=== PATIENT | female | born 1990 | race African-American/Black ===

== ENCOUNTER → 2017-11-27 | Outpatient (CLI) | payer MEDICAID | LOC: HPND 10:27 | PROVIDERS: ATTEND Obstetrics & Gynecology | DX: Z36.2 Encounter for other antenatal screening follow-up (principal); O99.332 Smoking (tobacco) complicating pregnancy, second trimester; O09.32 Supervision of pregnancy with insufficient antenatal care, second trimester | CPT/HCPCS: 76811 ==

== ENCOUNTER 2018-03-18 10:05 | Inpatient (IN) ==
[2018-03-18] MEDS ORDERED: ceFAZolin 2 GM Premix Inj 2 GM/50 ML PIGGYBACK IV.SIG PRN (10:48)
[2018-03-18] MEDS ORDERED: Citric Acid/Sodium Citrate Liq 30 ML UDC PO SCH (11:00)
[2018-03-18 11:02] LABS: Baso % (Auto) 0.2 % (0.0-2.0); Eos # (Auto) 0.1 th/mm3 (0.0-0.4); Eos % (Auto) 0.9 % (0.0-4.0); Hematocrit 34.6 % (35.0-46.0); Hemoglobin 11.2 gm/dL (11.6-15.3); Lymph # (Auto) 1.2 th/mm3 (1.0-4.8); Lymph % (Auto) 17.6 % (9.0-44.0); Mean Corpuscular HGB Conc 32.5 % (32.0-36.0); Mean Corpuscular Hemoglobin 26.3 pg (27.0-34.0); Mean Corpuscular Volume 80.8 fL (80.0-100.0); Mean Platelet Volume 9.5 fL (7.0-11.0); Mono # (Auto) 0.5 th/mm3 (0.0-0.9); Mono % (Auto) 7.6 % (0.0-8.0); Neut # (Auto) 4.8 th/mm3 (1.8-7.7); Neut % (Auto) 73.7 % (16.0-70.0); Platelet Count 271 th/mm3 (150-450); Red Blood Count 4.28 mil/mm3 (4.00-5.30); Red Cell Distribution Width 15.2 % (11.6-17.2); White Blood Count 6.6 th/mm3 (4.0-11.0)
[2018-03-18 11:32] LABS: Amphetamine Screen,Urine Neg (Neg); Barbiturate Screen,Urine Neg (Neg); Cannabinoid Screen,Urine Neg (Neg); Cocaine Screen,Urine Neg (Neg)
[2018-03-18 11:33] LABS: Opiate Screen,Urine Neg (Neg)
[2018-03-18 11:45] LABS: Bacteria,Urine Rare /hpf; Bilirubin,Urine Negative (Negative); Clarity,Urine Hazy (Clear); Color,Urine Yellow (Yellw/Straw); Glucose,Urine (UA) Negative (Negative); Leukocyte Esterase,Urine Moderate (Negative); Mucus,Urine Few /lpf (Occasional); Nitrite,Urine Negative (Negative); Specific Gravity,Urine 1.016 (1.002-1.035); Squamous Epithelial Cell,Urine 18 /hpf (0-5)
--- NOTE | 2018-03-18 11:51 | P.HPOB ---
History of Present Illness Primary Care Physician: No Primary Care Physician Chief Complaint: Repeat C section History of Present Illness: Patient is a 27-year-old at 39/0 who presents today for repeat C section. She states she has had hypertension with , starting when she was [age] months . She has not been hypertensive in clinic with [facility] or here in the hospital today thus far. She reports infrequent contractions causing 9/10 pain. [facility]. She states she has had normal movement. Denies nausea, vomiting, fever, chills, abdominal pain, shortness of breath, changes in vision, headache, lightheadedness, dizziness, dysuria, hematuria, frequency, change in urine color /smell, change in bowel habits, large gushes of fluid. Denies discharge. No bloody discharge, abnormally colored or malodorous discharge. No other complaints today. PMH: history of bipolar disorder without hospitalization, not currently on medications Surgical Hx: CD x3, denies complications Social: Recently incarcerated. Marijuana use in the past, denies other drug use. No alcohol, tobacco, or drugs during . Weeks Gestation:: 39 Para: 4 : 3 Total # of Miscarriage(s): 0 Total # of Abortions (Spontaneous & Elective): 0 - Inpatient Certification I certify that the inpatient services were ordered in accordance with Medicare regulations governing the order. This includes certification that hospital inpatient services are reasonable and necessary and in the case of services not specified as inpatient-only under 42 CFR 419.22(n), that they are appropriately provided as inpatient services in accordance to with the 2-midnight benchmark under 43 CFR 412.3(e) Estimated Total Length of Stay (Days): 2 Plans for Post Hospital Care: Home Review of Systems Constitutional: Denies fever(s), Denies weakness Eyes: Denies blurry vision, Denies change in vision Ears, Nose, Mouth, and Throat: Denies abnormal hearing, Denies headache(s) ( Migraine during , none currently) Cardiovascular: Denies chest pain, Denies rapid, pounding, or irregular heartbeat, Denies shortness of breath Respiratory: Denies cough, Denies shortness of breath Gastrointestinal: Denies abdominal pain, Denies nausea Genitourinary: Denies difficulty urinating, Denies urinary urgency Medications and Allergies Active Medications: Active Medications Citric Acid/Sodium Citrate (Sodium Citrate/Citric Acid Liq) 30 ml PO OPERATIONS MANAGER DEMI Stop: 03/22/18 10:59 Cefazolin Sodium/Dextrose (Ancef 2 Gm Premix Inj) 2 gm in 50 mls @ 100 mls/hr IV.SIG OPERATIONS MANAGER PRN PRN Reason: Pre Op Stop: 03/22/18 10:47 Lactated Ringer's (Lr 1000 Ml Inj) 1,000 mls @ 2,000 mls/hr IV.SIG .Q30M ONE Stop: 03/18/18 11:17 Lactated Ringer's (Lr 1000 Ml Inj) 1,000 mls @ 150 mls/hr IV.CONT .Q6H40M DEMI Allergies Allergy/AdvReac Type Severity Reaction Status Date / Time shellfish Allergy Severe Swelling Uncoded 03/18/18 10:45 of lips and hands and hives Home Medications Medication Instructions Recorded Confirmed Type [id number],carb,[id number] 1 cap PO TID 03/18/18 03/18/18 History [CitraNatal [place] (iron fum)] prenat.vits,lorena,jkp-veyn-ggicm 1 tab PO DAILY 03/18/18 03/18/18 History [ Vitamin] Exam Vital signs: Vital Signs Temp Pulse Resp BP 03/18/18 10:45 98.3 F 17 03/18/18 10:42 75 100/81 Narrative: General: Alert, well appearing, in no acute distress Skin: Warm and dry HEENT: Atraumatic. Moist mucus membranes Cardiac: Regular rate and rhythm without murmur Pulmonary: No increased work of breathing. Clear to auscultation bilaterally with good air movement. Abdominal: Non-tender. Gravid uterus. FHT's: Category: 2 Baseline: 140 Reactive: yes Variability: moderate Decels: rare mild variables Extremities: No cyanosis or edema. Back: No CVA tenderness. Caprini VTE Risk Assessment Caprini VTE Risk Assessment: No/Low Risk (score <= 1) Caprini Risk Assessment Model: Point Value = 1 Point Value = 2 Point Value = 3 Point Value = 5 Age 41-60 Minor surgery BMI > 25 kg/m2 Swollen legs Varicose veins or History of unexplained or recurrent spontaneous Oral contraceptives or hormone replacement Sepsis (< 1 month) Serious lung disease, including pneumonia (< 1 month) Abnormal pulmonary function Acute myocardial infarction Congestive heart failure (< 1 month) History of inflammatory bowel disease Medical patient at bed rest Age 61-74 Arthroscopic surgery Major open surgery (> 45 min) Laparoscopic surgery (> 45 min) Malignancy Confined to bed (> 72 hours) Immobilizing plaster cast Central venous access Age >= 75 History of VTE Family history of VTE Factor V Leiden Prothrombin [id number] Lupus anticoagulant Anticardiolipin antibodies Elevated serum homocysteine Heparin-induced thrombocytopenia Other congenital or acquired thrombophilia Stroke (< 1 month) Elective arthroplasty Hip, pelvis, or leg fracture Acute spinal cord injury (< 1 month) Prophylaxis Regimen: Total Risk Factor Score Risk Level Prophylaxis Regimen 0-1 Low Early ambulation 2 Moderate Order ONE of the following: *Sequential Compression Device (SCD) *Heparin 5000 units SQ BID 3-4 Higher Order ONE of the following medications: *Heparin 5000 units SQ TID *Enoxaparin/Lovenox 40 mg SQ daily (WT < 150 kg, CrCl > 30 mL/min) *Enoxaparin/Lovenox 30 mg SQ daily (WT < 150 kg, CrCl > 10-29 mL/min) *Enoxaparin/Lovenox 30 mg SQ BID (WT < 150 kg, CrCl > 30 mL/min) AND/OR *Sequential Compression Device (SCD) 5 or more Highest Order ONE of the following medications: *Heparin 5000 units SQ TID (Preferred with Epidurals) *Enoxaparin/Lovenox 40 mg SQ daily (WT < 150 kg, CrCl > 30 mL/min) *Enoxaparin/Lovenox 30 mg SQ daily (WT < 150 kg, CrCl > 10-29 mL/min) *Enoxaparin/Lovenox 30 mg SQ BID (WT < 150 kg, CrCl > 30 mL/min) AND *Sequential Compression Device (SCD) Assessment and Plan - Diagnosis (1) 39 weeks gestation of Code(s): Z3A.39 - 39 weeks gestation of Status: Acute (2) Previous section complicating Code(s): O34.219 - Maternal care for unspecified type scar from previous delivery Status: Acute (3) Rubella non-immune status, antepartum Code(s): O99.89 - Other specified diseases and conditions complicating , childbirth and the puerperium; Z28.3 - Underimmunization status Status: Acute - Plan This is a 27yo who presents for scheduled repeat IUP at 39 weeks gestation via 2nd trimester US - scheduled for 39 / 0 due to prior x 3 -History of MJ use, but denies current drug use -Reports HTN in (at 4months), however no hx of preeclampsia and not hypertensive in clinic with [facility] and not currently hypertensive -GBS negative -Category II FHT Plan: -Plan for delivery today -Continue to monitor FHT -NPO diet for surgery -Ancef: 2 grams before surgery -Fluids: 1 L of LR given, LR @ 150/hr -VTE ppx with SCDs
[2018-03-18] MEDS ORDERED: Morphine Sulfate PF Inj 5 MG/10 ML Ampul ONE (14:01)
--- NOTE | 2018-03-18 14:06 | P.OBGPN ---
MD notified by RN of variable decelerations noted. Note surgery was delayed secondary to emergent surgery bumped. heel coverer aware patient in route to the OR
[2018-03-18] MEDS ORDERED: Phenylephrine/NS 1000 MCG/10ML Syringe IV.PUSH ONE (14:11)
[2018-03-18] MEDS ORDERED: Ketorolac Inj 30 MG/ML (IVP) Vial IV.PUSH ONE (14:11)
[2018-03-18] MEDS ORDERED: Oxytocin 30 Units/500ml Premix 30 UNITS/500 ML BAG IV.SIG ONE (15:17)
[2018-03-18] MEDS ORDERED: Naloxone Inj 0.4 MG/ML Vial IV.PUSH PRN (16:59)
[2018-03-18] MEDS ORDERED: Oxytocin 30 Units/500ml Premix 30 UNITS/500 ML BAG IV.SIG PRN (20:17)
--- NOTE | 2018-03-18 21:21 | P.OP ---
Date of procedure: 03/18/18 Procedure: Repeat low uterine segment transverse section Anesthesia: spinal Surgeon: Adalgisa Anand MD Ocean Freight Forwarder: Anselmo LEE PGY 3 Estimated blood loss (mL): 500 Operation and Findings: Patient counseled of alternatives benefits complications including but not limited to permanent injury to the bowel bladder nerve blood vessels ureters any structures in abdomen or pelvis infection hemorrhage morbidity mortality related surgery under anesthesia related procedures even the remote possibility of infection hemorrhage injury patient expressed verbal understanding. She was subsequently taken to the OR after informed consent obtained prepped and draped in normal sterile fashion after spinal analgesia noted to be adequate timeout performed also received antibiotics and SCDs in place. Subsequently a Pfannenstiel incision was made to the previous incision carried down to the underlying layer of fascia which was incised in the midline dissected laterally sharply with curved Roach scissors superior aspect of the fascia was grasped with [place] clamps x2 dissected off from the underlying rectus muscle sharply. Inferior aspect of the fascia was grasped with Eduardo clamps x2 dissected off from the underlying rectus muscle sharply. Rectus muscle blunt entrance into the peritoneum with care to avoid the bladder. Bladder blade was subsequently placed vesicouterine peritoneum was identified bladder flap was created in a transverse fashion. Transverse incision on the uterus. Extended laterally digitally. Amniotomy clear fluid. vertex was brought to the incision nares and mouth were bulb suctioned delivery of the remainder of the body. Delayed cord clamping. A viable male weight 8 pounds 1 ounce Apgars 8 9 delivered without incident. Cord blood collected placenta manually removed the uterus was left in situ cleared of all clot and debris closed with 1 chromic in a running locked fashion followed by second imbricating Lambert suture. Hemostasis was noted to be adequate. At this time identification of the fascia which was closed with 1 PDS in a running fashion. Subcutaneous bleeding controlled with Bovie pencil. Irrigation followed by closure of the skin with a Harley needle Monocryl. Patient taught procedure well sponge lap needle counts correct x2 patient taken to recovery room in stable condition.
[2018-03-18] MEDS ORDERED: ceFAZolin Inj 2,000 MG in Sodium Chlor 0.9% Inj 80 ML IV.SIG SCH (22:00)
[2018-03-18] MEDS: ceFAZolin 2 GM Premix Inj 2 GM/50 ML PIGGYBACK IV.SIG SCH (23:16)
[2018-03-19] MEDS: ceFAZolin 2 GM Premix Inj 2 GM/50 ML PIGGYBACK IV.SIG SCH (05:28)
[2018-03-19 05:48] LABS: Baso % (Auto) 0.2 % (0.0-2.0); Hematocrit 27.9 % (35.0-46.0); Hemoglobin 9.3 gm/dL (11.6-15.3); Lymph % (Auto) 8.3 % (9.0-44.0); Mean Corpuscular HGB Conc 33.3 % (32.0-36.0); Mean Corpuscular Hemoglobin 26.4 pg (27.0-34.0); Mean Corpuscular Volume 79.2 fL (80.0-100.0); Mean Platelet Volume 8.9 fL (7.0-11.0); Mono # (Auto) 1.1 th/mm3 (0.0-0.9); Mono % (Auto) 9.7 % (0.0-8.0); Neut # (Auto) 9.6 th/mm3 (1.8-7.7); Neut % (Auto) 81.8 % (16.0-70.0); Platelet Count 239 th/mm3 (150-450); Red Blood Count 3.52 mil/mm3 (4.00-5.30); Red Cell Distribution Width 14.7 % (11.6-17.2); White Blood Count 11.8 th/mm3 (4.0-11.0)
--- NOTE | 2018-03-19 08:53 | P.PNOB ---
Subjective Post day: 1 Interval history: Postoperative day # 1 Afebrile with stable vitals overnight. Incision not draining. Decreased lochia. Denies dysuria. No breast tenderness. Appetite good. No nausea or vomiting. Not yet ambulating well. Denies calf pain or shortness of breath. She had some nausea and vomiting yesterday postoperatively. Otherwise, she is doing well this morning and has no other complaints. Objective Vital Signs/I&O: Vital Signs 03/18/18 10:42 03/18/18 10:45 03/18/18 12:26 Temperature 98.3 F Pulse Rate 75 73 Respiratory Rate 17 Blood Pressure 100/81 104/58 L 03/18/18 15:25 03/18/18 15:40 03/18/18 15:45 Temperature 97.6 F Pulse Rate 68 70 70 Respiratory Rate 16 16 16 Blood Pressure 93/51 L 97/52 L 97/52 L 03/18/18 15:55 03/18/18 16:10 03/18/18 16:24 Temperature Pulse Rate 63 67 59 L Respiratory Rate 16 16 16 Blood Pressure 102/59 L 98/55 L 102/55 L 03/18/18 18:30 03/18/18 20:00 03/19/18 00:30 Temperature 97.5 F L 97.7 F Pulse Rate 53 L 64 55 L Respiratory Rate 20 18 18 Blood Pressure 112/71 115/72 113/71 03/19/18 04:00 03/19/18 08:00 Temperature 97.9 F 98.0 F Pulse Rate 55 L 58 L Respiratory Rate 18 20 Blood Pressure 107/54 L 99/59 L Intake & Output 03/18/18 03/19/18 03/19/18 18:59 06:59 18:59 Intake Total 1100 / 1100 50 / 50 Balance 1100 / 1100 50 / 50 Weight 68 kg Intake: IV 1100 / 1100 50 / 50 Ofirmev Inj 1,000 mg In 100 ml 100 / 100 @ 0 mls/hr IV.SIG .STK-MED ONE Rx#:[id number] LR 1000 mL Inj 1,000 ML @ 2000 1000 / 1000 mls/hr IV.SIG .Q30M ONE Rx#: [id number] Ancef 2 GM Premix Inj 2 gm In 50 / 50 50 ml @ 100 mls/hr IV.SIG Q8H [facility] Rx#:[id number] Other: Weight On Admission 68 kg Result Diagrams: 03/19/18 05:37 Objective Remarks: General: Alert, well appearing, in no acute distress Skin: Warm and dry HEENT: Atraumatic. Moist mucus membranes Cardiac: Regular rate and rhythm without murmur Pulmonary: No increased work of breathing. Clear to auscultation bilaterally with good air movement. Abdominal: Non-tender. + BS. Uterus firm and non-tender below the umbilicus. Incision w/o extending erythema or purulent discharge Extremities: no edema, 2+ pedal pulses, no calf tenderness Medications and IVs: Active Medications Citric Acid/Sodium Citrate (Sodium Citrate/Citric Acid Liq) 30 ml PO PLASTERER FOREMAN [facility] Stop: 03/22/18 10:59 Last Admin: 03/18/18 14:07 Dose: 30 ml Diphenhydramine HCl (Benadryl) 50 mg PO Q6H PRN PRN Reason: MILD TO MODERATE ITCHING Stop: 03/19/18 16:58 Diphenhydramine HCl (Benadryl Inj) 25 mg IV.PUSH Q6H PRN PRN Reason: MILD TO MODERATE ITCHING Stop: 03/19/18 16:58 Diphtheria/Pertussis/Tetanus Vacc (Boostrix Vaccine Inj) 0.5 ml IM .ONCE ONE Stop: 03/19/18 16:01 Lactated Ringer's (Lr 1000 Ml Inj) 1,000 mls @ 150 mls/hr IV.CONT .Q6H40M [facility] Last Admin: 03/19/18 04:30 Dose: Not Given Lactated Ringer's (Lr 1000 Ml Inj) 1,000 mls @ 100 mls/hr IV.CONT .Q10H [facility] Stop: 03/19/18 16:16 Last Admin: 03/19/18 07:39 Dose: Not Given Oxytocin (Pitocin 30 Units/Ns 500 Ml Premix) 30 units in 500 mls @ 100 mls/hr IV.SIG UNSCH PRN PRN Reason: Heavy bleeding Ibuprofen (Motrin) 800 mg PO Q8H PRN PRN Reason: cramping Ketorolac Tromethamine (Toradol Inj) 30 mg IM Q6H PRN PRN Reason: SEE LABEL COMMENTS Stop: 03/23/18 15:16 Last Admin: 03/19/18 04:43 Dose: 30 mg Measles/Mumps/Rubella Vaccine Live (M-M-R Ii Vaccine Inj) 0.5 ml SQ .ONCE ONE Stop: 03/19/18 16:01 Miscellaneous Information ([facility] Nursing Information) 1 each OTHER UNSCH PRN PRN Reason: SEE LABEL COMMENTS Stop: 03/19/18 16:58 Miscellaneous Information ([facility] Nursing Information) 1 each OTHER UNSCH PRN PRN Reason: SEE LABEL COMMENTS Stop: 03/19/18 16:58 Naloxone HCl (Narcan Inj) 0.4 mg IV.PUSH UNSCH PRN PRN Reason: SEE LABEL COMMENTS Stop: 03/19/18 16:58 Ondansetron HCl (Zofran Inj) 4 mg IV.PUSH Q6H PRN PRN Reason: NAUSEA OR VOMITING Last Admin: 03/18/18 20:36 Dose: 4 mg Oxycodone/Acetaminophen (Percocet 5/325 Mg) 1 tab PO Q4H PRN PRN Reason: PAIN SCALE 3 TO 5 Last Admin: 03/19/18 01:00 Dose: 1 tab Oxycodone/Acetaminophen (Percocet 5/325 Mg) 2 tab PO Q4H PRN PRN Reason: PAIN SCALE 6 TO 10 Last Admin: 03/19/18 05:25 Dose: 2 tab Senna/Docusate Sodium (Sylvia-Colace) 2 tab PO Q12H PRN PRN Reason: CONSTIPATION Simethicone (Mylicon Chew) 80 mg PO QID PRN PRN Reason: FLATULENCE Sodium Chloride (Ns Flush) 2 ml IV.FLUSH BID DEMI Last Admin: 03/18/18 22:44 Dose: Not Given Sodium Chloride (Ns Flush) 2 ml IV.FLUSH PRN PRN PRN Reason: FLUSH AFTER USING IV ACCESS Assessment and Plan - Diagnosis (1) 39 weeks gestation of Code(s): Z3A.39 - 39 weeks gestation of Status: Acute (2) Previous section complicating Code(s): O34.219 - Maternal care for unspecified type scar from previous delivery Status: Acute (3) Rubella non-immune status, antepartum Code(s): O99.89 - Other specified diseases and conditions complicating , childbirth and the puerperium; Z28.3 - Underimmunization status Status: Acute - Plan 27 y/o female who is POD# 1 s/p CXN. (repeat CD) -Continue routine care. -Percocet and Motrin PRN pain. -Encouraged OOB. Advised pelvic rest for 6 wks. Will need a f/u appt. in 1 wk for incision check. -Contraception undecided -HTN in w/o HTN here or any evidence of preeclampsia -Nausea and vomiting overnight, received Zofran -Regular diet today, will se if she tolerates
[2018-03-19] MEDS: Senna/Docusate Sodium 8.6/50 MG Tablet PO PRN ×2 (09:53→22:35)
[2018-03-19] MEDS ORDERED: Diphtheria/Tetanus/Pertussis Vaccine Inj 0.5 ML Syringe IM ONE (16:00)
[2018-03-19] MEDS ORDERED: Measles/Mumps/Rubella Vaccine Inj 0.5 ML Vial SQ ONE (16:00)
[2018-03-19] MEDS: Simethicone 80 MG Chew Tablet PO PRN (17:39)
[2018-03-20] MEDS: Simethicone 80 MG Chew Tablet PO PRN (01:57)
--- NOTE | 2018-03-20 09:41 | P.PNOB ---
Subjective Post op day: 2 Interval history: Patient seen and examined bedside this morning. No nausea/vomiting. Patient ate bleeding voiding without difficulty. Denies any chest pain/shortness of breath/dizziness. No calf tenderness. Objective Vital Signs/I&O: Vital Signs 03/19/18 12:30 03/19/18 20:00 03/20/18 08:00 Temperature 98.0 F 98.0 F 98.1 F Pulse Rate 70 67 73 Respiratory Rate 19 Blood Pressure 95/47 L 126/70 99/57 L Intake & Output 03/19/18 03/20/18 03/20/18 18:59 06:59 18:59 Intake Total 400 / 400 Balance 400 / 400 Intake: IV 400 / 400 LR 1000 mL Inj 1,000 ML @ 150 400 / 400 mls/hr IV.CONT .Q6H40M [facility] Rx#: [id number] Result Diagrams: 03/19/18 05:37 Objective Remarks: GENERAL: Well-nourished, well-developed patient. CARDIOVASCULAR: Regular rate and rhythm without murmurs, gallops, or rubs. RESPIRATORY: Breath sounds equal bilaterally. No accessory muscle use. ABDOMEN/GI: Abdomen soft, non-tender, bowel sounds present. Incision: Clean, dry and intact. No drainage or erythema. Fundus: Firm, non-tender at umbilicus. GENITOURINARY: Light to moderate bleeding. EXTREMITIES: No cyanosis or edema, non-tender, without signs of DVT. Medications and IVs: Active Medications Citric Acid/Sodium Citrate (Sodium Citrate/Citric Acid Liq) 30 ml PO MICROBIOLOGY LAB TECHNICIAN [facility] Stop: 03/22/18 10:59 Last Admin: 03/18/18 14:07 Dose: 30 ml Lactated Ringer's (Lr 1000 Ml Inj) 1,000 mls @ 150 mls/hr IV.CONT .Q6H40M [facility] Last Admin: 03/20/18 05:47 Dose: Not Given Oxytocin (Pitocin 30 Units/Ns 500 Ml Premix) 30 units in 500 mls @ 100 mls/hr IV.SIG UNSCH PRN PRN Reason: Heavy bleeding Ibuprofen (Motrin) 800 mg PO Q8H PRN PRN Reason: cramping Last Admin: 03/20/18 01:58 Dose: 800 mg Ketorolac Tromethamine (Toradol Inj) 30 mg IM Q6H PRN PRN Reason: SEE LABEL COMMENTS Stop: 03/23/18 15:16 Last Admin: 03/19/18 04:43 Dose: 30 mg Ondansetron HCl (Zofran Inj) 4 mg IV.PUSH Q6H PRN PRN Reason: NAUSEA OR VOMITING Last Admin: 03/18/18 20:36 Dose: 4 mg Oxycodone/Acetaminophen (Percocet 5/325 Mg) 1 tab PO Q4H PRN PRN Reason: PAIN SCALE 3 TO 5 Last Admin: 03/19/18 01:00 Dose: 1 tab Oxycodone/Acetaminophen (Percocet 5/325 Mg) 2 tab PO Q4H PRN PRN Reason: PAIN SCALE 6 TO 10 Last Admin: 03/20/18 06:28 Dose: 2 tab Senna/Docusate Sodium (Sylvia-Colace) 2 tab PO Q12H PRN PRN Reason: CONSTIPATION Last Admin: 03/19/18 22:35 Dose: 2 tab Simethicone (Mylicon Chew) 80 mg PO QID PRN PRN Reason: FLATULENCE Last Admin: 03/20/18 01:57 Dose: 80 mg Sodium Chloride (Ns Flush) 2 ml IV.FLUSH BID DEMI Last Admin: 03/19/18 22:26 Dose: Not Given Sodium Chloride (Ns Flush) 2 ml IV.FLUSH PRN PRN PRN Reason: FLUSH AFTER USING IV ACCESS Assessment and Plan - Diagnosis (1) Rubella non-immune status, antepartum Code(s): O99.89 - Other specified diseases and conditions complicating , childbirth and the puerperium; Z28.3 - Underimmunization status Status: Acute (2) Previous delivery, delivered Code(s): O34.219 - Maternal care for unspecified type scar from previous delivery Status: Acute - Plan 27 y/o female who is POD# 2 s/p CXN. (repeat CD) -Continue routine care. -Percocet and Motrin PRN pain. -Encouraged OOB. Advised pelvic rest for 6 wks. Will need a f/u appt. in 1 wk for incision check. -Contraception undecided, will f/u with PCP -plan to d/c today
[2018-03-20] MEDS: Senna/Docusate Sodium 8.6/50 MG Tablet PO PRN (10:27)
== END 2018-03-20 13:05 | disposition home or self-care (01) ==
LOC: H2E 10:05 → H1EA 16:37
PROVIDERS: ADMIT Obstetrics & Gynecology; ATTEND Obstetrics & Gynecology